=== PATIENT | male | born 1955 | race Caucasian/White ===

== ENCOUNTER 2017-03-28 17:21 | Emergency (ER) | payer BC ==
[~2017-03-28] VITALS: Ht 185.4 cm; Wt 116.1 kg
[2017-03-28 19:01] LABS: EOSINOPHIL (%) 0 % (0-5); HEMATOCRIT 43.1 % (38.0-50.0); IMMATURE GRANULOCYTE (%) 0.4 % (0.0-0.7); IMMATURE GRANULOCYTE COUNT 0.1 K/uL; INSTRUMENT ABS NEUTROPHIL CT 13.1 K/uL; LYMPHOCYTE COUNT 0.5 K/uL (1.0-2.8); MCH 31.5 PG (29.0-34.0); MCHC 33.9 G/DL (30.0-36.0); MCV 92.9 FL (86-99); MEAN PLAT.VOLUME 9.6 uM^3 (9.0-12.4); MONOCYTE (%) 0.7 % (3-12); MONOCYTE COUNT 0.1 K/uL (0-0.8); NEUTROPHIL COUNT 13.1 K/uL (1.8-6.4); PLATELET COUNT 285 K/uL (156-360); RBC DIS.WIDTH-CV 14.7 % (11.8-14.6); RBC DIS.WIDTH-SD 50.3 % (39-53); RED BLOOD COUNT 4.64 M/uL (4.00-5.50); WHITE BLOOD COUNT 13.8 K/uL (4.1-10.2)
[2017-03-28 19:27] LABS: CHLORIDE 106 mEq/L (99-109); POTASSIUM 3.5 mEq/L (3.7-5.4); SODIUM 140 mEq/L (136-147)
[2017-03-28 19:28] LABS: MAGNESIUM 1.7 mg/dL (1.3-2.7)
[2017-03-28 19:30] LABS: GLUCOSE 152 mg/dL (70-99)
[2017-03-28 19:31] LABS: ANION GAP 12 MEQ/L (2-14)
[2017-03-28 19:32] LABS: TOTAL BILIRUBIN 0.3 mg/dL (0.0-1.0)
[2017-03-28 19:33] LABS: ALKALINE PHOSPHATASE 56 IU/L (3-129)
[2017-03-28 19:34] LABS: GFR ESTIMATE (CALCULATED) > 59 mL/min/
[2017-03-28 19:35] LABS: TROP-I INTERPRETATION NEGATIVE; TROPONIN-I < 0.01 ng/mL (0.0-0.30); UREA NITROGEN (BUN) 9 mg/dL (9-23)
[2017-03-28 19:37] LABS: CREATINE KINASE 70 IU/L (1-294); LIPASE 11 U/L (1.0-51.0); TOTAL CK 70 IU/L (1-294)
[2017-03-28 19:43] LABS: CK-MB 0.7 ng/mL (0.0-4.9)
[2017-03-28 21:11] VITALS: BP 120/82
== END 2017-03-28 21:14 | disposition home or self-care (01) ==
LOC: EME 17:21
PROVIDERS: Emergency Medicine
DX: T88.59XA Other complications of anesthesia, initial encounter (principal); T41.45XA Adverse effect of unspecified anesthetic, initial encounter; J02.9 Acute pharyngitis, unspecified; E87.6 Hypokalemia; Z98.890 Other specified postprocedural states; Y92.530 Ambulatory surgery center as the place of occurrence of the external cause
CPT/HCPCS: 80053; 82550; 82553; 83690; 83735; 84484; 85025; 99281; 99284